=== PATIENT | male | born 1955 | race Caucasian/White ===

== ENCOUNTER 2018-08-28 14:44 | Outpatient (CLI) | payer BC ==
--- NOTE | 2018-08-28 16:35 | RAD ---
TWO VIEWS CHEST: Comparison: None. History: General adult medical examination. FINDINGS: Two views of the chest show normal sized cardiomediastinal silhouette. There is no evidence of consol idation, mass, or pleural effusion. The bones are unremarkable. IMPRESSION: No evidence of acute cardiopulmonary disease. POS: [facility]
== END 2018-08-28 14:45 | disposition home or self-care (01) ==
LOC: BICRAD 14:44
PROVIDERS: ATTEND Family Medicine
DX: Z00.00 Encounter for general adult medical examination without abnormal findings (principal)
CPT/HCPCS: 71046

== ENCOUNTER 2019-09-20 10:27 | Outpatient (CLI) | payer BC ==
--- NOTE | 2019-09-20 11:37 | RAD ---
Exam: 2 views lumbar spine HISTORY: Metastatic prostate cancer Comparison none FINDINGS: 5 lumbar type vertebra. Vertebral body height is maintained. No fracture. Disc space height s are preserved. No spondylolisthesis or spondylolysis. Visualized sacrum and bony pelvis are intact. Atherosclerosis of a nonaneurysmal aorta is noted. IMPRESSION: No radiographic evidence of osseous metastases or fracture.
--- NOTE | 2019-09-20 11:43 | RAD ---
3 views cervical spine: 09/20/2019 COMPARISON: None HISTORY: Metastatic prostate cancer, bilateral fingertips and foot numbness Cervical radiculopathy FINDINGS: The open-mouth odontoid view demonstrates a normal-appearing dens and C1-2 articulation. Mi ld anterolisthesis at C3-4 measuring 2 mm at C4-5 measuring 2 mm. Mild disc space narrowing and anterior osteophyte formation at C3-4 and C4-5. Degenerative endplate change with disc space narrowing and anterior osteophyte formation at C5-6 and C6-7. Bilateral facet and uncovertebral osteophyte formation noted within the lower cervical spine, most pr ominent at the C5-6 level. No prevertebral soft tissue swelling. IMPRESSION: Cervical spine degenerative change as detailed above. If radiculopathy persists, MRI may be beneficial.
== END 2019-09-20 10:28 | disposition home or self-care (01) ==
LOC: BICRAD 10:27
PROVIDERS: ATTEND Family Medicine
DX: M47.22 Other spondylosis with radiculopathy, cervical region (principal); M54.16 Radiculopathy, lumbar region
CPT/HCPCS: 72040; 72100

== ENCOUNTER 2019-09-21 13:23 | Inpatient (IN) | payer BC ==
[2019-09-21 13:57] LABS: #Lymphocytes 0.8 thou/uL (1.20-3.40); #Monocytes 0.4 thou/uL (0.11-0.59); #Neutrophils 10.5 thou/uL (1.40-6.50); %Eosinophils 0.1 % (0.0-10.0); %Lymphocytes 7.1 % (21.0-51.0); %Monocytes 3.7 % (0.0-10.0); Hemoglobin 15.8 g/dL (14.0-18.0); Mean Corpuscular Hemoglobin 29.5 pg (27.0-31.0); Mean Corpuscular Volume 89.3 fL (78.0-98.0); Platelet Count 269 thou/uL (130-400); Red Blood Cell (RBC) Count 5.38 mill/uL (4.70-6.10); White Blood Cell (WBC) Count 11.8 thou/uL (4.8-10.8)
[2019-09-21 14:22] LABS: ALT (SGPT) 17 U/L (8-55); AST (SGOT) 17 U/L (5-34); Albumin 4.2 g/dL (3.4-4.8); Alkaline Phosphatase 69 U/L (40-110); Anion Gap 13 mmol/L (10-20); BUN (Urea Nitrogen) 16 mg/dL (8.4-25.7); Bilirubin, Total 0.5 mg/dL (0.2-1.2); CK (CPK) 122 U/L (30-200); Calc. Creatinine Clearance 0 mL/min (70-130); Calcium 9.6 mg/dL (7.8-10.44); Carbon Dioxide 23 mmol/L (23-31); Chloride 105 mmol/L (98-107); Estimated GFR-MDRD 69; Globulin 3.6 g/dL (2.4-3.5); Glucose 151 mg/dL (80-115); Protein, Total 7.8 g/dL (5.8-8.1); Sodium 137 mmol/L (136-145)
[2019-09-21 14:57] LABS: CRP (Inflammatory) 3.09 mg/dL (= or < 0.5)
--- NOTE | 2019-09-21 15:00 | RAD ---
Exam: Chest one view HISTORY:Altered mental status Comparison: 08/28/2018 FINDINGS: Cardiac silhouette: Normal Aorta: Atherosclerosis Pulmonary vessels: Normal Costophrenic angles: Clear LUNGS: No masses or consolidation. Pneumothorax: None Osseous abnormalities: None IMPRESSION: No acute cardiopulmonary process. Atherosclerosis
[2019-09-21] MEDS ORDERED: Ondansetron ODT 4 MG TAB PO PRN (16:14)
[2019-09-21] MEDS ORDERED: methylPREDNISolone Sod Succ/PF 125 MG/2 ML VIAL IVP SCH (16:30)
[2019-09-21 16:56] LABS: Bacteria/HPF None Seen HPF (None Seen); Bilirubin Negative (Negative); Blood, Urine 1+ (Negative); Clarity Clear (Clear); Glucose, Urine (Dipstick) Normal (Negative); Leukocyte Negative Leu/uL (Negative); Nitrite Negative (Negative); Protein, Urine (Dipstick) Negative (Neg-Trace); RBC/HPF 0-3 HPF (0-3); Squamous Epithelial None Seen HPF (0-3); Urobilinogen Normal mg/dL (Less than 2); WBC/HPF 0-3 HPF (0-3)
--- NOTE | 2019-09-21 16:57 | HP ---
PRIMARY CARE PROVIDER: Dr. Aniceto Andersen. HISTORY OF PRESENT ILLNESS: The patient referred to the [facility] Hospitalist Service by [facility]. The patient states his feet started becoming numb 2 days ago. He states that he really does not feel anything with the plantar surface of his feet and the dorsal surface of his feet has a numb feeling. He saw Dr. Andersen yesterday and was put on steroids. C-spine, L-spine, and plain x- rays were done. Today, he feels worse. He was found on the floor by his . He states he has trouble walking. He is unsteady. He also notes that his fingers have started tingling now. No visual disturbance. No speech disturbance. He states that 3 weeks ago he did have an upper respiratory infection. PAST MEDICAL HISTORY: Lifelong asthma. No hospitalizations or emergency room visits. MEDICATIONS: Albuterol inhaler, he uses when he has a cold or something and feels short of breath. ALLERGIES: NONE. PAST SURGICAL HISTORY: Appendectomy in 2013 and robotic prostate cancer [place] [address] Iverson. FAMILY HISTORY: Multiple men, his father and his uncles with prostate cancer. SOCIAL HISTORY: . Full code status. at bedside, next of kin. He is a one pack a day smoker for 40 years. Drinks very occasional alcohol. REVIEW OF SYSTEMS: GENERAL: No fever, chills, headaches, dizziness, or fainting. EYES: No double vision, blurred vision, or flashing lights. EAR, NOSE, AND THROAT: No ear pain or drainage. No nasal bleeding. No trouble swallowing. CARDIAC: No chest pain, orthopnea, or paroxysmal nocturnal dyspnea. RESPIRATORY: Occasional mild asthma, uses an inhaler with immediate relief. No recent asthma. No recent cough or wheezing. GASTROINTESTINAL: No nausea, vomiting, diarrhea, or constipation. GENITOURINARY: No hematuria or dysuria. No hesitancy. No trouble getting his stream started. MUSCULOSKELETAL: No pain or swelling in his legs. He does have the aforementioned sensation change in his feet. NEUROLOGICAL: No history of strokes, seizures, or focal weakness. See present illness. PSYCHIATRIC: No anxiety or depression. SKIN: He has a rash on his distal arms and distal legs and he has been putting topical nonsteroidal powder on. HEME/LYMPH: No tender or swollen lymph nodes in the axilla, inguinal, or cervical area. PHYSICAL EXAMINATION: GENERAL: He is alert, appropriate, cooperative gentleman. VITAL SIGNS: Blood pressure 143/99, pulse 112, respirations 16, temperature 98.6, and O2 saturation 99%. HEENT: Pupils are equal, round, and reactive to light. Extraocular movements were full, tested in detail. Sclerae are white. Tympanic membranes clear. Nose is clear. Oral mucous membranes are wet. No dental hygiene issues. NECK: No jugular venous distention, adenopathy, or thyromegaly. CHEST: Clear to auscultation and percussion with mild rhonchi on the right side. HEART: Had a regular rate and rhythm. First and second heart sounds are clear. There are no murmurs or gallops. ABDOMEN: Soft. Bowel sounds are normal. There is no hepatosplenomegaly. No mass. No rebound. No bruits. EXTREMITIES: Reveal no cyanosis, clubbing, or edema. Pulses; carotid, radial, femoral, and pedal pulses were palpable and symmetric. SKIN: Warm and dry with a maculopapular rash on the left forearm, worse in the right forearm and on both shins. HEME/LYMPH: No tender or swollen lymph nodes in the axilla, inguinal, or cervical area. NEUROLOGIC: Cranial nerves 2 through 12 are intact. Sensation, subjective numbness in his feet. He does feel plantar stimulation. Toes are neutral. Deep tendon reflexes are normal in his knees and elbows, subjectively diminished in his ankles. Strength, the only focal strength that I was able to elicit was weak dorsiflexion of his right foot. IMAGING STUDIES: Chest x-ray reviewed by me, no cardiomegaly, CHF, or infiltrate. EKG reviewed by me, sinus tachycardia with no ST-T abnormality. LABORATORY DATA: White count elevated at 11.8, hemoglobin 15.8, and platelet count was 269,000. He has an absolute neutrophilia. D-dimer was done for reasons I do not know, 0.43. Chemistries; comp metabolic profile is normal except for blood sugar 151, comment on prednisone. Troponin was done for who knows what reason, less than 0.01. C-reactive protein was elevated at 3.09 with normal less than 0.5. BNP was normal. Lipase was elevated at 139, I also do not know why that was done. ADMITTING DIAGNOSES: 1. Paresthesias involving the feet and fingertips bilaterally. 2. Ataxia. 3. Hypertension. 4. Tachycardia. 5. Tobacco abuse. PLAN: 1. Neurology has been consulted. Dr. Gibbs will see the patient this evening. 2. He has been given a dose of Solu-Medrol. 3. Thyroid functions and cortisol tests will be done. 4. MRI of the C-spine and L-spine have been ordered and will be deferred until seen by Dr. Gibbs. 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
[2019-09-21 17:45] VITALS: BMI 29.6
[2019-09-21] MEDS: OCTAGAM IVPB SCH (23:04)
--- NOTE | 2019-09-22 01:02 | CON ---
DATE OF CONSULTATION: 09/21/2019 CONSULTING PHYSICIAN: Hospitalist Service. IMPRESSION: Guillain-Memphis syndrome. PLAN: 1. Gammaglobulin 1 g/kg IV piggyback daily for 2 days. 2. DVT prophylaxis. 3. PT/OT evaluations. HISTORY OF PRESENT ILLNESS: Mr. Kohler is a previously healthy 63-year-old man who came in for evaluation. He reports that on Friday, he started noticing some paresthesias in his feet. By Friday, he started having the same sensation in both of his hands, started noticing more difficulty walking. He denied any facial symptoms, slurred speech, difficulty swallowing, headache, nausea, vomiting, vertigo, chest pain or shortness of breath. He had a prodromal upper respiratory infection last week. He has otherwise been healthy. He was admitted for further evaluation. His initial workup has been unremarkable. PAST MEDICAL HISTORY: Otherwise negative. ALLERGIES: PER CHART. SOCIAL HISTORY: No tobacco or alcohol. FAMILY HISTORY: Noncontributory. REVIEW OF SYSTEMS: Ten-system review of systems is otherwise negative. PHYSICAL EXAMINATION: GENERAL: He is a healthy-appearing middle-aged man, in no acute distress. VITAL SIGNS: Stable. He is afebrile. HEENT: Pupils equal and reactive. Conjunctivae clear. Oropharynx clear. No ptosis is present. NECK: Supple. No nuchal weakness noted. EXTREMITIES: No cyanosis, clubbing, or edema. NEUROLOGIC: He is alert and appropriate. His speech is fluent and clear. Cranial nerves 2 through 12 are intact. Motor exam showed 4/5 strength in both upper and lower extremities. His ankle flexion was more prominently weak at 4-/5. He could stand independently. He could not raise up onto tiptoes. Sensation was intact to touch, but diminished to proprioception. Reflexes were absent at both ankles and left knee. He had a trace reflex in the right knee. I could not elicit reflexes in the biceps. There is no tremor or dysmetria present. SUMMARY: This is a 63-year-old man with acute onset of paresthesias and diffuse weakness with areflexia. 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 We can begin treatment tonight. Recent cases have responded quite well to gammaglobulin and usually turning the corner quite quickly. Job ID: [id number]
[2019-09-22] MEDS: Acetaminophen 325 MG TAB PO PRN ×4 (03:18→17:02)
[2019-09-22 05:01] LABS: #Eosinphils 0.2 thou/uL (0.0-0.7); #Lymphocytes 1.2 thou/uL (1.20-3.40); #Monocytes 0.3 thou/uL (0.11-0.59); %Basophils 0.3 % (0.0-1.0); %Eosinophils 2.1 % (0.0-10.0); %Lymphocytes 15.5 % (21.0-51.0); %Monocytes 4.1 % (0.0-10.0); %Neutrophils 77.9 % (42.0-75.0); Hemoglobin 13.7 g/dL (14.0-18.0); Mean Corpuscular HGB CONC 33.9 g/dL (32.0-36.0); Mean Corpuscular Hemoglobin 30.8 pg (27.0-31.0); Mean Corpuscular Volume 90.8 fL (78.0-98.0); Mean Platelet Volume 7.1 fL (7.4-10.4); Platelet Count 224 thou/uL (130-400); Red Blood Cell (RBC) Count 4.46 mill/uL (4.70-6.10); White Blood Cell (WBC) Count 7.7 thou/uL (4.8-10.8)
[2019-09-22 05:25] LABS: Anion Gap 13 mmol/L (10-20); BUN (Urea Nitrogen) 13 mg/dL (8.4-25.7); Calc. Creatinine Clearance 89 mL/min (70-130); Calcium 8.5 mg/dL (7.8-10.44); Carbon Dioxide 18 mmol/L (23-31); Chloride 107 mmol/L (98-107); Estimated GFR-MDRD 71; Glucose 117 mg/dL (80-115); Potassium 3.8 mmol/L (3.5-5.1); Sodium 134 mmol/L (136-145)
--- NOTE | 2019-09-22 07:08 | PDOC.HOSPP ---
- Subjective Encounter Date: 09/22/19 Encounter Time: 07:06 Subjective: still numb in feet, no sinificant worsening - Objective Vital Signs & Weight: Vital Signs (12 hours) Temp Pulse Resp BP Pulse Ox 09/22/19 03:57 98.4 F 73 18 184/98 H 98 09/21/19 23:46 97.4 F L 80 18 149/84 H 97 09/21/19 19:57 97.7 F 91 20 157/87 H 96 Weight Weight 189 lb 6.4 oz Result Diagrams: 09/22/19 04:50 09/22/19 04:50 Hospitalist ROS - Medication Medications: Active Medications Generic Name Dose Route Start Last Admin Trade Name Freq PRN Reason Stop Dose Admin Acetaminophen 650 mg 09/21/19 16:14 09/22/19 03:18 Tylenol PO 650 mg Q4H PRN Administration Headache/Fever/Mild Pain (1-3) Immune Globulin 60 gm/ Immune 750 mls @ 0 mls/hr 09/21/19 20:00 09/21/19 23: 04 Globulin 10 gm/ Immune IVPB 09/23/19 06:00 750 mls Globulin 5 gm/ Device 2000 DARIA Administration As Directed - Exam Neck: no JVD Heart: RRR, no murmur Respiratory: CTAB, no wheezes Gastrointestinal: soft, non-tender, normal bowel sounds Extremities: no edema Hosp A/P (1) Guillain Bustillos syndrome Code(s): G61.0 - GUILLAIN-BARRE SYNDROME Status: Acute (2) HTN (hypertension) Code(s): I10 - ESSENTIAL (PRIMARY) HYPERTENSION Status: Acute (3) Asthma Code(s): J45.909 - UNSPECIFIED ASTHMA, UNCOMPLICATED Status: Chronic Qualifiers: Asthma severity: mild (4) Tobacco abuse Code(s): Z72.0 - TOBACCO USE Status: Chronic - Plan cont gamma globulin tx PT neuro checks monitor BP, may need tx
[2019-09-22] MEDS: Enoxaparin Sodium 40 MG/0.4 ML SYRINGE SC SCH (08:22)
[2019-09-22] MEDS: traMADol HCl 50 MG TAB PO PRN ×2 (14:30→20:40)
[2019-09-22] MEDS: OCTAGAM IVPB SCH (20:40)
[2019-09-23] MEDS: traMADol HCl 50 MG TAB PO PRN ×3 (02:58→18:46)
--- NOTE | 2019-09-23 08:43 | PDOC.HOSPP ---
- Subjective Encounter Date: 09/23/19 Encounter Time: 08:41 Subjective: subjectively improved, sensaation in feet improved - Objective Vital Signs & Weight: Vital Signs (12 hours) Temp Pulse Resp BP Pulse Ox 09/23/19 07:10 95 09/23/19 07:01 98.5 F 85 20 167/89 H 95 09/23/19 03:21 83 148/83 H 09/22/19 23:20 97.5 F L 84 16 143/82 H 97 Weight Weight 189 lb 6.4 oz I&O: 09/22/19 09/23/19 09/24/19 06:59 06:59 06:59 Intake Total 900 Output Total 250 Balance 650 Result Diagrams: 09/22/19 04:50 09/22/19 04:50 Hospitalist ROS - Medication Medications: Active Medications Generic Name Dose Route Start Last Admin Trade Name Freq PRN Reason Stop Dose Admin Acetaminophen 650 mg 09/21/19 16:14 09/22/19 17:02 Tylenol PO 650 mg Q4H PRN Administration Headache/Fever/Mild Pain (1-3) Enoxaparin Sodium 40 mg 09/22/19 09:00 09/22/19 08:22 Lovenox SC 40 mg 0900 DARIA Administration Tramadol HCl 50 mg 09/22/19 14:03 09/23/19 02:58 Ultram PO 50 mg Q6H PRN Administration Moderate to Severe Pain (4-10) - Exam Neck: no JVD Heart: RRR, no murmur Respiratory: CTAB, no wheezes Gastrointestinal: soft, normal bowel sounds Extremities: no edema Neurological - other findings: FTRs ankles absent, weak dorsiflexors et ankles Hosp A/P (1) Guillain Bustillos syndrome Code(s): G61.0 - GUILLAIN-BARRE SYNDROME Status: Acute (2) HTN (hypertension) Code(s): I10 - ESSENTIAL (PRIMARY) HYPERTENSION Status: Acute (3) Asthma Code(s): J45.909 - UNSPECIFIED ASTHMA, UNCOMPLICATED Status: Chronic Qualifiers: Asthma severity: mild (4) Tobacco abuse Code(s): Z72.0 - TOBACCO USE Status: Chronic - Plan cont gamma globulin tx PT neuro checks monitor BP, may need tx
[2019-09-23] MEDS: Enoxaparin Sodium 40 MG/0.4 ML SYRINGE SC SCH (09:06)
[2019-09-23] MEDS: Acetaminophen 325 MG TAB PO PRN ×2 (11:13→19:59)
--- NOTE | 2019-09-24 00:09 | CON ---
DATE OF CONSULTATION: 09/23/2019 HISTORY OF PRESENT ILLNESS: Mr. Kohler reports he completed his IVIG treatments. He walked 300 feet with a roller walker today. He is feeling much better. He had a transient headache secondary to the gammaglobulin. PHYSICAL EXAMINATION: NEUROLOGIC: On exam today, his speech is fluent and clear. Cranial nerves are intact. Motor exam shows 5/5 strength in the upper extremities. He still has 4-/5 strength in ankle flexion. His sensation is the same. Given the improvement compared to his initial evaluation, I suspect he is going to continue to have a rapid recovery. I think he could be a good candidate for outpatient therapy and be discharged tomorrow. Job ID: [id number]
[2019-09-24] MEDS: traMADol HCl 50 MG TAB PO PRN ×2 (01:28→08:38)
[2019-09-24] MEDS: Acetaminophen 325 MG TAB PO PRN (03:47)
[2019-09-24] MEDS: Enoxaparin Sodium 40 MG/0.4 ML SYRINGE SC SCH (08:39)
[2019-09-24 11:44] VITALS: BP 165/95; TEMP 98.5
--- NOTE | 2019-09-24 14:26 | CON ---
DATE OF CONSULTATION: 09/24/2019 Mr. Kohler had an uneventful night. He reports that he has been up to the bathroom independently on two occasions. He is not having any significant pain. He does not feel like he has lost any ground as far as his strength goes. He feels like he can probably get by with a walker and manage for outpatient therapy. He otherwise seems stable. I think he can be discharged today for outpatient management. Job ID: [id number]
--- NOTE | 2019-09-24 17:45 | DIS ---
DATE OF ADMISSION: 09/21/2019 DATE OF DISCHARGE: 09/24/2019 DISCHARGE DIAGNOSES: 1. 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 2. Smoking history. 3. Asthma. 4. Hypertension. HOSPITAL COURSE: The patient is a 63-year-old male, who initially presented to the hospital with worsening lower extremity weakness. He recently had upper respiratory infection about 2 or 3 weeks prior to this incident. He was seen by Neurology, who diagnosed him with Guillain-Solano and started him on two doses of IVIG. The patient responded fairly well and was able to ambulate. Prior to that, he was unable to walk. The patient was seen by Physical Therapy, recommended outpatient PT. He has been discharged. He will follow up with Neurology and primary care as outpatient. I have also told the patient that if his condition worsens, he needs to come into the hospital. His blood pressure has been high throughout the hospital stay. I will call him some antihypertensives and ask him also to follow up with his primary care doctor. I have also talked to him about smoking session and he is aware of that. PHYSICAL EXAMINATION: CV: S1 and S2 present. No murmurs, rubs, or gallops. ABDOMEN: Soft, nontender. Bowel sounds are present x2. NEUROLOGICAL: No focal deficits noted. He has 5/5 bilateral upper extremity and bilateral lower extremity strength. DISCHARGE INSTRUCTIONS: I did recommend the patient to follow up with his primary and also with Neurology. Also, he needs to follow up with his primary for possible antihypertensives. I do not want to start him on anything, since recently he has had high blood pressure, however, he needs to follow up with his primary before we do so. This could just be incidental from being in the hospital and from all the stress. Job ID: [id number]
== END 2019-09-24 13:30 | disposition home or self-care (01) | DRG 96 ==
LOC: ERS 13:23 → 2SE 17:00
PROVIDERS: ADMIT Internal Medicine; ATTEND Internal Medicine
DX: G61.0 Guillain-Barre syndrome (principal); J45.909 Unspecified asthma, uncomplicated; I10 Essential (primary) hypertension; R00.0 Tachycardia, unspecified; F17.210 Nicotine dependence, cigarettes, uncomplicated; G44.40 Drug-induced headache, not elsewhere classified, not intractable; T50.Z15A Adverse effect of immunoglobulin, initial encounter; Z79.51 Long term (current) use of inhaled steroids; Z90.49 Acquired absence of other specified parts of digestive tract
CPT/HCPCS: 36415; 71045; 72040; 72100; 80048; 80053; 81003; 81015; 82550; 83690; 83880; 84484; 85025; 85379; 85652; 86140; 87040; 93005; 96360; J1568; J1650

== ENCOUNTER 2019-09-25 23:48 | Emergency (ER) | payer BC ==
[2019-09-26] MEDS ORDERED: Morphine 4 MG/ML VIAL ONE (01:12)
[2019-09-26] MEDS ORDERED: Ondansetron ODT 4 MG TAB ONE (01:12)
== END 2019-09-26 01:27 | disposition home or self-care (01) ==
LOC: ERS 23:48
DX: M54.5 Low back pain (principal); K59.00 Constipation, unspecified; F17.210 Nicotine dependence, cigarettes, uncomplicated; J45.909 Unspecified asthma, uncomplicated; Z79.51 Long term (current) use of inhaled steroids
CPT/HCPCS: 96372; 99283; J2270; Q0162

== ENCOUNTER 2019-10-06 16:10 | Outpatient (CLI) | payer BC ==
--- NOTE | 2019-10-06 17:29 | RAD ---
FRONTAL RADIOGRAPH PELVIS: 10/06/19 HISTORY: Pelvic pain. FINDINGS: No widening of the sacroiliac joints or pubic symphysis. The femoral heads project normally over thei r respective acetabulum. No acute fracture is seen. There is mild superior joint space narrowing invo lving bilateral hips with mild degenerative change noted at the pubic symphysis. IMPRESSION: No acute findings. POS: OFF
== END 2019-10-06 16:11 | disposition home or self-care (01) ==
LOC: BICRAD 16:10
PROVIDERS: ATTEND Family Medicine
DX: R10.2 Pelvic and perineal pain (principal)
CPT/HCPCS: 72170

== ENCOUNTER 2019-11-17 08:03 | Day surgery (SDC) | payer BC ==
[2019-11-17] MEDS ORDERED: Sodium Chloride 0.9% 20 ML ONE (08:40)
[2019-11-17] MEDS ORDERED: diphenhydrAMINE 50 MG/ML VIAL IVP SCH (08:45)
[2019-11-17] MEDS ORDERED: OCTAGAM IVPB SCH (09:00)
[2019-11-17] MEDS ORDERED: ADMIXTURE FEE IVPB SCH (09:00)
[2019-11-17 09:28] VITALS: BP 140/85; TEMP 98.2
== END 2019-11-17 13:52 | disposition home or self-care (01) ==
LOC: ONC/OP 08:03
PROVIDERS: ATTEND Psychiatry & Neurology Neurology
DX: G61.0 Guillain-Barre syndrome (principal)
CPT/HCPCS: 96365; 96366; 96376; J1200; J1568

== ENCOUNTER 2023-03-05 07:56 | Outpatient (CLI) | payer MEDICARE, OTHER ==
[2023-03-05] MEDS ORDERED: Iopamidol 370 76% 100 ML VIAL ONE (09:01)
== END 2023-03-05 07:57 | disposition home or self-care (01) ==
LOC: CT 07:56
PROVIDERS: ATTEND Urology
DX: C61 Malignant neoplasm of prostate (principal)
CPT/HCPCS: 74177; 78306; 82565; A9503

== ENCOUNTER 2023-07-22 12:00 | Outpatient (CLI) | payer MEDICARE | END 2023-07-22 12:01 | disposition home or self-care (01) | LOC: RAD 12:00 | PROVIDERS: ATTEND Nurse Practitioner Family | DX: B34.9 Viral infection, unspecified (principal) | CPT/HCPCS: 71046 ==

== ENCOUNTER 2023-10-20 07:59 | Outpatient (CLI) | payer MEDICARE, OTHER ==
[2023-10-20] MEDS ORDERED: Iopamidol 370 76% 100 ML VIAL ONE (09:29)
== END 2023-10-20 08:00 | disposition home or self-care (01) ==
LOC: NM 07:59
PROVIDERS: ATTEND Internal Medicine Hematology & Oncology
DX: C61 Malignant neoplasm of prostate (principal); R97.20 Elevated prostate specific antigen [PSA]; K80.20 Calculus of gallbladder without cholecystitis without obstruction; I74.5 Embolism and thrombosis of iliac artery; I70.1 Atherosclerosis of renal artery; I70.0 Atherosclerosis of aorta
CPT/HCPCS: 71260; 74160; 78306; A9503

== ENCOUNTER 2025-06-24 08:15 | Day surgery (SDC) | payer MEDICARE, OTHER ==
[2025-06-23 16:45] VITALS: BMI 27.3
[2025-06-24] MEDS ORDERED: Heparin 5,000 UNITS/ML VIAL ONE (08:42)
[2025-06-24] MEDS ORDERED: CEFAZOLIN 2 GM VIAL ONE (08:42)
[2025-06-24] MEDS ORDERED: Bupivacaine 0.25% HCL 30 ML VIAL ONE (09:12)
[2025-06-24] MEDS ORDERED: fentaNYL PF 100 MCG/2 ML SYRINGE ONE (09:38)
[2025-06-24] MEDS ORDERED: PROPOFOL 20 ML ONE ×2 (09:41→09:42)
[2025-06-24] MEDS ORDERED: Lidocaine 1% PF 5 ML VIAL ONE (09:42)
[2025-06-24] MEDS ORDERED: Ondansetron PF 4 MG/2 ML Vial ONE (10:51)
[2025-06-24] MEDS ORDERED: MINERAL OIL/WHITE PETROLATUM 3.5 GM TUBE ONE (10:59)
[2025-06-24] MEDS ORDERED: PHENYLEPHRINE-NS 100 MCG/ML 10 ML SYRINGE ONE (11:02)
== END 2025-06-24 15:32 | disposition home or self-care (01) ==
LOC: SDC 08:15
PROVIDERS: ATTEND Plastic Surgery
PROC: 0HBDXZZ Excision of Right Lower Arm Skin, External Approach (ICD-10-PCS; principal; 2025-06-24)
PROC: 0HBBXZZ Excision of Right Upper Arm Skin, External Approach (ICD-10-PCS; principal; 2025-06-24)
PROC: 0HB1XZZ Excision of Face Skin, External Approach (ICD-10-PCS; principal; 2025-06-24)
DX: C44.319 Basal cell carcinoma of skin of other parts of face (principal); C44.602 Unspecified malignant neoplasm of skin of right upper limb, including shoulder; C79.51 Secondary malignant neoplasm of bone; L85.8 Other specified epidermal thickening; L72.3 Sebaceous cyst
CPT/HCPCS: 11400; 11600; 11642; 12035; J0169; J0665; J1100; J1644; J2405; J2704; 88305; 88331; 88332